=== PATIENT | female | born 1950 | race Caucasian/White ===

== ENCOUNTER → 2019-12-30 11:43 | Outpatient (BNVA) | payer MEDICARE, SELFPAY | PROVIDERS: Family Provider Nurse Practitioner; PCP Family Medicine; Referring Provider Student in an Organized Health Care Education/Training Program; Visit Provider Specialist | DX: I63.9 Cerebral infarction, unspecified (principal) | CPT/HCPCS: 99204 ==

== ENCOUNTER 2020-01-15 09:49 | Outpatient (CLI) | payer MEDICARE, SELFPAY ==
--- NOTE | 2020-01-15 11:00 | MR_ITS ---
WS: [id number] MRA ANGIOGRAPHY [place] HISTORY: I63.9 Cerebral infarction, unspecified COMPARISON: None available. TECHNIQUE: 3-D MR angiography is performed of the [place]. All images are reviewed including source images. Distal vertebral and basilar arteries are intact with no significant stenosis or plaque. Posterior ce rebral arteries are normal course and caliber. circulation LEFT posterior cerebral artery. Pos terior communicating arteries are both patent, LEFT is dominant. Intracranial portion of the internal carotid arteries are normal course and caliber. No significant a therosclerosis, stenosis or aneurysm identified. Middle and anterior cerebral arteries are both paten t with no significant disease. Anterior communicating artery is also normal. MR/MR angio head wo con [id number] IMPRESSION: 1. No thrombosis, occlusions or stenosis [place]. 2. LEFT posterior cerebral artery circulation. Normal variant.
--- NOTE | 2020-01-15 11:00 | MR_ITS ---
WS: [id number] MRI BRAIN WITHOUT CONTRAST HISTORY: I63.9 Cerebral infarction, unspecified COMPARISON: None available. TECHNIQUE: Diffusion imaging, multiplanar T1, T2 and FLAIR imaging obtained. Acute infarct in the RIGHT [place]. Infarct measures 12 x 6 mm without hemorrhage. There is additional mild chronic microvascular ischemic disease otherwise. RIGHT basal ganglia periva scular spaces or prior lacunar infarcts. There is only very mild cerebral and cerebellar atrophy. Min imal microvascular ischemic changes in the [place]. Ventricles and extra-axial spaces are normal. No inferior displacement of cerebellar tonsils. Empty sella turcica. Posterior fossa is also unremarkable. Dural venous sinuses and [place] demonstrate no abnormality on this unenhanced studies. Paranasal sinuses: Clear. Mastoid air cells: Normal. Calvarium and scalp: Intact. MR/MR head wo con* [id number] IMPRESSION: 1. Acute RIGHT [place] infarct measures 12 x 6 mm without hemorrhage. 2. Very mild atrophy and chronic microvascular ischemic disease otherwise. 3. Empty sella turcica.
--- NOTE | 2020-01-15 11:45 | MR_ITS ---
WS: [id number] MRA CAROTID ARTERIES HISTORY: CVA COMPARISON: None available. TECHNIQUE: MRA is performed with [id number] imaging. Only noncontrast carotid artery examination has been ordered. Short segment visualization of the carotid arteries. Right: Mid to distal common carotid artery and the carotid bifurcation is normal. Proximal internal a nd external carotid arteries are normal. Left: Mid to distal common carotid artery and the carotid bifurcation is normal. Proximal internal an d external carotid arteries are normal. Subclavian Arteries: Not visualized. Vertebral Arteries: Normal. LEFT is dominant. MR/MR angio neck wo con [id number] IMPRESSION: [id number] imaging of the carotid arteries has been performed. No significa nt stenosis at the bifurcations.
== END 2020-01-15 09:50 | disposition home or self-care (01) ==
LOC: RADSHAW 09:54
PROVIDERS: PCP Family Medicine; Visit Provider Specialist
DX: I63.9 Cerebral infarction, unspecified (principal); I67.82 Cerebral ischemia
CPT/HCPCS: 70544; 70547; 70551